=== PATIENT | male | born 1970 | race Caucasian/White ===

== ENCOUNTER 2017-03-05 09:19 | Emergency (ER) | payer MEDICARE, OTHER ==
[~2017-03-05] VITALS: Ht 165.1 cm; Wt 75.4 kg
[~2017-03-05 09:19] MED LIST: BACL10TA PO; CLON.5 PO; DETR4CAP PO; FLUV100C PO; IRON325T2 PO; LACT20SO4 PO; LAMI200T PO; MONT10TA2 PO; RISP1 PO; RISP1TAB51 PO; SYNT25TA PO
[2017-03-05 09:27] VITALS: BP 125/61; PULSE 109; RESP 17; TEMP 97.4; O2SAT 95
[2017-03-05] MEDS ORDERED: LEVO50TA4 PO (10:05)
[2017-03-05] MEDS ORDERED: LAMO200T PO (10:05)
[2017-03-05] MEDS ORDERED: DOCU1CAP39 PO (10:05)
[2017-03-05] MEDS ORDERED: FERR325T8 PO (10:05)
[2017-03-05] MEDS ORDERED: TOLT1CAP PO (10:05)
[2017-03-05] MEDS ORDERED: RISP3TAB2 PO (10:05)
[2017-03-05] MEDS ORDERED: CLON0.5T PO (10:05)
[2017-03-05] MEDS ORDERED: OMEP20TA PO (10:05)
[2017-03-05] MEDS ORDERED: MONT10TA4 PO (10:05)
[2017-03-05] MEDS ORDERED: FLUV100T PO (10:05)
[2017-03-05] MEDS ORDERED: SODIUM CHLOR 0.9% 1000 ML INJ 1,000 ML IV ONE (11:00)
--- NOTE | 2017-03-05 11:04 | PD ---
HPI Chief Complaint: GI Complaint Time Seen by Provider: 10:53 Travel History International Travel<30 days: No Contact w/Intl Traveler<30days: No Traveled to known affect area: No History of Present Illness HPI This 46-year-old male is complaining of vomiting. He has a history of autism. He is not verbal. He is here with his mother he does communicate with his mother that. He has a history of gallbladder disease and also gastroparesis. He was also complaining of some left-sided chest pain. He points with one finger to the left upper chest as the site of the pain. His mother says he has been coughing. He he is not on any medication for vomiting at home. He did eat some breakfast though the mother says he been vomiting throughout the weekend. 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, violent behavior ) Reproductive: No Respiratory: Yes Integumentary: Yes Immunizations Current: Yes Seizures: Yes Thyroid Disease: Yes Tetanus Vaccination: < 5 Years Influenza Vaccination: Yes Past Surgical History Surgical History: No Previous Surgery Other Surgery: No Family History Family Hypercholesterolemia: Yes Social History Alcohol Use: No Tobacco Use: No Substance Use: No Allergies-Medications (Allergen,Severity, Reaction): Coded Allergies: haloperidol (Unverified Allergy, Severe, Hives, tongue swelling, 03/05/17) Reported Meds & Prescriptions Reported Meds & Active Scripts Active Reported Clonazepam 0.5 Mg Tab 0.5 Mg PO BID PRN Dok (Docusate Sodium) 100 Mg Cap 1 Cap PO DAILY Levothyroxine (Levothyroxine Sodium) 50 Mcg Tab 50 Mcg PO DAILY Fluvoxamine (Fluvoxamine Maleate) 100 Mg Tab 100 Mg PO DAILY Omeprazole 20 Mg Tab 20 Mg PO DAILY Montelukast (Montelukast Sodium) 10 Mg Tab 10 Mg PO DAILY Ferrous Sulfate 325 Mg (65 Mg Iron) Tablet 325 Mg PO DAILY Tolterodine ER (Tolterodine Tartrate) 4 Mg Cap 4 Mg PO HS Risperidone 3 Mg Tab 3 Mg PO HS Lamotrigine 200 Mg Tab 200 Mg PO HS Review of Systems General / Constitutional: No: Fever, Chills HENT: No: Headaches Cardiovascular: Positive: Chest Pain or Discomfort Respiratory: Positive: Cough Gastrointestinal: Positive: Nausea, Vomiting Genitourinary: No: Frequency Musculoskeletal: No: Myalgias, Arthralgias Physical Exam Narrative GENERAL: Well-developed male SKIN: Focused skin assessment warm/dry. HEAD: Atraumatic. Normocephalic. EYES: Pupils equal and round. No scleral icterus. No injection or drainage. ENT: No nasal bleeding or discharge. Mucous membranes pink and moist. NECK: Trachea midline. No JVD. CARDIOVASCULAR: Regular rate and rhythm. No murmur appreciated. RESPIRATORY: No accessory muscle use. Clear to auscultation. Breath sounds equal bilaterally. GASTROINTESTINAL: Abdomen soft, non-tender, nondistended. Hepatic and splenic margins not palpable. MUSCULOSKELETAL: No obvious deformities. No clubbing. No cyanosis. No edema. NEUROLOGICAL: Awake and alert. No obvious cranial nerve deficits. Motor grossly within normal limits. No speech. Data Data Last Documented VS Vital Signs Date Time Temp Pulse Resp B/P (MAP) Pulse Ox O2 Delivery O2 Flow Rate FiO2 03/05/17 12:05 03/05/17 11:45 75 14 Room Air 03/05/17 09:27 97.4 95 Orders Orders Electrocardiogram (03/05/17 10:57) Complete Blood Count With Diff (03/05/17 10:57) Comprehensive Metabolic Panel (03/05/17 10:57) Troponin I (03/05/17 10:57) Lipase (03/05/17 10:57) Chest, Single Ap (03/05/17 10:57) Sodium Chlor 0.9% 1000 Ml Inj (Ns 1000 M (03/05/17 11:00) Labs Laboratory Tests Test 03/05/17 11:10 White Blood Count 12.9 TH/MM3 Red Blood Count 4.23 MIL/MM3 Hemoglobin 12.5 GM/DL Hematocrit 37.5 % Mean Corpuscular Volume 88.7 FL Mean Corpuscular Hemoglobin 29.5 PG Mean Corpuscular Hemoglobin Concent 33.2 % Red Cell Distribution Width 13.4 % Platelet Count 421 TH/MM3 Mean Platelet Volume 8.1 FL Neutrophils (%) (Auto) 64.7 % Lymphocytes (%) (Auto) 24.7 % Monocytes (%) (Auto) 8.5 % Eosinophils (%) (Auto) 1.2 % Basophils (%) (Auto) 0.9 % Neutrophils # (Auto) 8.3 TH/MM3 Lymphocytes # (Auto) 3.2 TH/MM3 Monocytes # (Auto) 1.1 TH/MM3 Eosinophils # (Auto) 0.2 TH/MM3 Basophils # (Auto) 0.1 TH/MM3 CBC Comment DIFF FINAL Differential Comment Blood Urea Nitrogen 16 MG/DL Creatinine 1.00 MG/DL Random Glucose 110 MG/DL Total Protein 7.8 GM/DL Albumin 3.4 GM/DL Calcium Level 9.0 MG/DL Alkaline Phosphatase 95 U/L Aspartate Amino Transf (AST/SGOT) 29 U/L Alanine Aminotransferase (ALT/SGPT) 51 U/L Total Bilirubin 0.3 MG/DL Sodium Level 141 MEQ/L Potassium Level 3.9 MEQ/L Chloride Level 105 MEQ/L Carbon Dioxide Level 27.4 MEQ/L Anion Gap 9 MEQ/L Estimat Glomerular Filtration Rate 80 ML/MIN Troponin I LESS THAN 0.02 NG/ML Lipase 116 U/L MDM Medical Decision Making Medical Screen Exam Complete: Yes Emergency Medical Condition: Yes Medical Record Reviewed: Yes Differential Diagnosis Differential includes gastroparesis, gastritis, Narrative Course Patient was given IV fluids and Zofran has not had further vomiting. White count is 12,000 and differential is normal. His LITES are normal he is stable for discharge. I will prescribe some Zofran for home use. I reexamined him and there is no right upper quadrant tenderness Diagnosis Primary Impression: Gastroparesis Scripts Ondansetron Odt (Zofran Odt) 4 Mg Tab 4 MG SL Q6HR Y for Nausea/Vomiting, #15 TAB 0 Refills Prov: Isaiah Farrell MD 03/05/17 Disposition: 01 DISCHARGE HOME Condition: Stable Isaiah Farrell MD Mar 05, 2017 11:04
[2017-03-05 11:24] LABS: AUTOMATED NEUTROPHIL # 8.3 TH/MM3 (1.8-7.7); BASOPHIL # 0.1 TH/MM3 (0-0.2); BASOPHIL % 0.9 % (0.0-2.0); EOSINOPHIL # 0.2 TH/MM3 (0-0.4); EOSINOPHIL % 1.2 % (0.0-4.0); HEMATOCRIT 37.5 % (39.0-51.0); HEMO FLAGS DIFF FINAL; LYMPH % 24.7 % (9.0-44.0); LYMPHOCYTE # 3.2 TH/MM3 (1.0-4.8); MEAN CELL VOLUME 88.7 FL (80.0-100.0); MEAN CORPUSCULAR HEMOGLOBIN 29.5 PG (27.0-34.0); MEAN CORPUSCULAR HGB CONC 33.2 % (32.0-36.0); MONO % 8.5 % (0.0-8.0); NEUT % 64.7 % (16.0-70.0); PLATELET COUNT 421 TH/MM3 (150-450); RED BLOOD COUNT 4.23 MIL/MM3 (4.50-5.90); RED CELL DISTRIBUTION WIDTH 13.4 % (11.6-17.2); WHITE BLOOD COUNT 12.9 TH/MM3 (4.0-11.0)
[2017-03-05 11:30] LABS: CHLORIDE 105 MEQ/L (98-107); POTASSIUM 3.9 MEQ/L (3.5-5.1); SODIUM (NA) 141 MEQ/L (136-145)
[2017-03-05 11:37] LABS: ANION GAP 9 MEQ/L (5-15); BICARBONATE 27.4 MEQ/L (21.0-32.0); BLOOD UREA NITROGEN 16 MG/DL (7-18)
[2017-03-05 11:39] LABS: ALT (GPT) 51 U/L (12-78)
[2017-03-05 11:40] LABS: AST (GOT) 29 U/L (15-37); GLOMERULAR FILTRATION RATE 80 ML/MIN (>89)
[2017-03-05 11:41] LABS: TOTAL BILIRUBIN ADULT 0.3 MG/DL (0.2-1.0)
[2017-03-05 11:43] LABS: ALKALINE PHOSPHATASE 95 U/L (45-117)
[2017-03-05 11:45] VITALS: BP 125/78; PULSE 75; RESP 14
--- NOTE | 2017-03-05 12:00 | RADRPT ---
EXAM DATE/TIME: 03/05/2017 11:33 [facility] COMPARISON: CHEST SINGLE AP, October 16, 2015, 19:00. INDICATIONS : Chest pain and Nausea MEDICAL HISTORY : Gastroparesis. Heart murmur SURGICAL HISTORY : None. ENCOUNTER: Initial ACUITY: 1 day PAIN SCORE: 3/10 LOCATION: Bilateral chest FINDINGS: Lungs are under aerated with minimal bibasilar parenchymal changes worse on the left than the right. There is no pneumothorax. There is no overt congestive failure. The portion of the bony skeleton vi sualized is unremarkable. CONCLUSION: Under aerated with minimal bibasilar changes. Maikel Ruiz MD FACR on March 05, 2017 at 11:58 Board Certified Radiologist. This report was verified electronically.
[2017-03-05] MEDS ORDERED: ZOFR4TAB3 SL (12:07)
--- NOTE | 2017-03-05 14:26 | EKG ---
Date Performed: 03/05/2017 Time Performed: 11:05:57 PTAGE: 46 years EKG: Sinus rhythm INCOMPLETE RIGHT BUNDLE BRANCH BLOCK MODERATE VOLTAGE CRITERIA FOR LVH, CONSIDER NORMAL VARIANT BORD TAI ECG PREVIOUS TRACING : 10/15/2015 13.16 Compared to prior tracing no significant change DOCTOR: Martin Azul Interpretating Date/Time 03/05/2017 14:25:30
== END 2017-03-05 12:10 | disposition home or self-care (01) ==
LOC: PHED 09:19
DX: E11.43 Type 2 diabetes mellitus with diabetic autonomic (poly)neuropathy (principal); K31.84 Gastroparesis; I45.10 Unspecified right bundle-branch block; R07.9 Chest pain, unspecified
CPT/HCPCS: 71010; 80053; 83690; 84484; 85025; 93005; 96360; 99285; J7030